=== PATIENT | male | born 1945 | race Caucasian/White ===

== ENCOUNTER 2018-11-03 07:42 | Inpatient (IN) | payer MEDICARE, BC | END 2018-11-05 13:50 | disposition home or self-care (01) | LOC: ER 07:42 → ED HOLD 11:28 → PCU 3S 16:16 | DX: J69.0 Pneumonitis due to inhalation of food and vomit (principal); J96.01 Acute respiratory failure with hypoxia; J44.1 Chronic obstructive pulmonary disease with (acute) exacerbation; N17.9 Acute kidney failure, unspecified; I27.20 Pulmonary hypertension, unspecified; J43.9 Emphysema, unspecified; R91.1 Solitary pulmonary nodule ==

== ENCOUNTER 2020-06-22 06:22 | Inpatient (IN) | payer BC, MEDICARE ==
[~2020-06-22] VITALS: Ht 177.8 cm; Wt 85.0 kg
[~2020-06-22 06:22] MED LIST: AMOX-580 PO; ASPI-1264 PO; BUPR100T13 PO; COMP1EAC88; CYCL-1 PO; FLUT1AER INH; HYDR-3972 PO; IPRA3AMP9 NEB; LOSA50TA64 PO; METR500T PO; MONT10TA21 PO; PRED20TA PO; ZOLP5TAB8 PO
[2020-06-22] MEDS ORDERED: dexamethasone sod phosphate 10mg/ml inj IV STA (06:58)
[2020-06-22] MEDS ORDERED: ipratropium/albuterol 3ml nebule NEB ONE (07:00)
[2020-06-22 07:01] LABS: BASOPHILS % (AUTO) 0.5 % (0-1); EOSINOPHILS # (AUTO) 0.1 X10'3 (0-0.9); EOSINOPHILS % (AUTO) 0.8 % (0-6); HEMATOCRIT 46.1 % (42.0-52.0); HEMOGLOBIN 15.9 g/dl (14.0-17.9); LYMPHOCYTES # (AUTO) 0.8 X10'3 (1.1-4.8); LYMPHOCYTES % (AUTO) 13.1 % (21-51); MEAN CORPUSCULAR HEMOGLOBIN 30.9 PG (27.0-31.0); MEAN CORPUSCULAR HGB CONC 34.4 g/dL (33.0-36.5); MEAN CORPUSCULAR VOLUME 89.7 FL (78-98); MEAN PLATELET VOLUME 7.1 FL (7.4-10.4); MONOCYTES # (AUTO) 0.4 X10'3 (0-0.9); MONOCYTES % (AUTO) 6.5 % (2-12); NEUTROPHILS # (AUTO) 5.1 X10'3 (1.8-7.7); NEUTROPHILS % (AUTO) 79.1 % (42-75); PLATELET COUNT 220 X10'3 (140-440); RED BLOOD COUNT 5.14 X10'6 (4.70-6.10); RED CELL DISTRIBUTION WIDTH 13.6 % (11.5-14.5); WHITE BLOOD COUNT 6.4 X10'3 (4.5-11.0)
[2020-06-22 07:16] LABS: ALANINE AMINOTRANSFERASE 31 U/L (12-78); ALBUMIN 3.8 G/DL (3.4-5.0); ALBUMIN/GLOBULIN RATIO 1.2 (1.1-1.5); ALKALINE PHOSPHATASE 54 IU/L (46-116); ANION GAP 12 (8-16); ASPARTATE AMINO TRANSFERASE 25 U/L (10-37); BLOOD UREA NITROGEN 27 MG/DL (7-18); CALCIUM 8.3 MG/DL (8.5-10.1); CHLORIDE 104 MMOL/L (99-107); CREATININE 1.23 MG/DL (0.60-1.10); GLUCOSE 99 MG/DL (70-104); POTASSIUM 4.2 MMOL/L (3.5-5.1); SODIUM 137 MMOL/L (135-145); TOTAL CARBON DIOXIDE 21.1 MMOL/L (24-32); TOTAL PROTEIN 6.9 G/DL (6.4-8.2); eGFR 57 ML/MIN
[2020-06-22] MEDS ORDERED: iohexol 350MG/ML 100ml bottle IV ONE (08:15)
[2020-06-22] MEDS ORDERED: normal saline 1000ml 1,000 ML IV SCH (09:58)
[2020-06-22] MEDS ORDERED: ondansetron/PF 4mg/2ml inj IV PRN (10:00)
[2020-06-22] MEDS ORDERED: acetaminophen 325mg tablet PO PRN ×2 (10:00)
[2020-06-22] MEDS ORDERED: magnesium 4gm in 100ml NS 100 ML IV PRN (10:00)
[2020-06-22] MEDS ORDERED: potassium CL 10mEq/100ml bag 100 ML IV PRN ×2 (10:00)
[2020-06-22] MEDS ORDERED: potassium Cl 20 mEq SR tablet PO PRN ×2 (10:00)
[2020-06-22] MEDS ORDERED: mag hydrox/Alum hydrox/simeth 30ml oral suspension PO PRN (10:00)
[2020-06-22] MEDS ORDERED: ipratropium/albuterol 3ml nebule NEB PRN (10:00)
[2020-06-22] MEDS ORDERED: magnesium hydroxide 30ml (MOM) UD suspension PO PRN (10:00)
[2020-06-22] MEDS ORDERED: magnesium Cl slow-release 64mg tablet PO PRN (10:00)
[2020-06-22] MEDS ORDERED: metoclopramide 5 mg/ml inj IV PRN (10:00)
[2020-06-22] MEDS ORDERED: HYDROcodone/acetaminophen 10/325mg tab PO PRN ×2 (10:00→18:50)
[2020-06-22] MEDS ORDERED: HYDROcodone/acetaminophen 5mg/325mg tablet PO PRN (10:00)
[2020-06-22] MEDS ORDERED: magnesium 2GM in 50ml NS 50 ML IV PRN (10:00)
[2020-06-22] MEDS: ipratropium/albuterol 3ml nebule NEB SCH ×2 (10:53→20:16)
[2020-06-22] MEDS ORDERED: ALBU18HF2 IH (12:44)
[2020-06-22] MEDS ORDERED: HYDR-4353 PO (12:44)
[2020-06-22] MEDS ORDERED: PRED20TA PO (12:47)
[2020-06-22] MEDS ORDERED: TIOT18CA3 ID (12:48)
[2020-06-22] MEDS ORDERED: AMLO2.5T5 PO (12:53)
[2020-06-22] MEDS ORDERED: VENL100T4 PO ×2 (12:53→12:57)
[2020-06-22] MEDS ORDERED: BUPR300T53 PO (12:53)
[2020-06-22] MEDS ORDERED: UMEC62.5 IH (12:59)
[2020-06-22] MEDS ORDERED: IBUP-1985 PO (13:08)
[2020-06-22] MEDS ORDERED: IPRA3AMP31 IH (13:16)
--- NOTE | 2020-06-22 15:35 | NUR ---
Received report from MARY ALICE Deal. Awaiting patient arrival to room 3023L.
--- NOTE | 2020-06-22 15:56 | NUR ---
Received patient to room 4026B via rney accompanied by MARY ALICE Deal. Patient alert and oriented with no complaints at this time and was able to ambulate to bed with SBA. Patient one belongings bag placed in closet. Oriented patient to room and call light. Bed low and locked, call light within reach.
[2020-06-22] MEDS: methylPREDNISolone sod succ 125mg/2ml vial IV SCH ×2 (16:20→19:45)
[2020-06-22 16:24] VITALS: BP 125/69
--- NOTE | 2020-06-22 17:51 | NUR ---
Dr. Muir in at patient's bedside.
[2020-06-22 18:00] VITALS: BP 139/71
--- NOTE | 2020-06-22 18:07 | NUR ---
Problems reprioritized. Patient report given, questions answered & plan of care reviewed with MARY ALICE Crowe.
[2020-06-22] MEDS ORDERED: zolpidem 5mg tablet PO PRN (18:50)
[2020-06-22] MEDS ORDERED: albuterol 2.5 MG/3 ML nebule NEB PRN (19:00)
[2020-06-22] MEDS ORDERED: ipratropium 0.5 MG/2.5ML nebule IH PRN (19:00)
[2020-06-22] MEDS: K and/or MAG REPLACEMENT MC SCH (20:00)
[2020-06-22] MEDS ORDERED: enoxaparin 40mg/0.4ml syringe SQ SCH (20:00)
[2020-06-22] MEDS: budesonide 0.5mg/2ml UD nebule IH SCH (20:16)
[2020-06-22] MEDS ORDERED: temazepam 15mg capsule PO PRN (21:00)
[2020-06-22 22:00] VITALS: BP 144/83
[2020-06-23] MEDS: ipratropium/albuterol 3ml nebule NEB SCH ×2 (00:06→07:01)
[2020-06-23] MEDS: methylPREDNISolone sod succ 125mg/2ml vial IV SCH ×3 (01:10→08:43)
[2020-06-23 02:00] VITALS: BP 141/78
[2020-06-23 05:17] LABS: BASOPHILS % (AUTO) 0 % (0-1); EOSINOPHILS % (AUTO) 0 % (0-6); HEMATOCRIT 43.9 % (42.0-52.0); LYMPHOCYTES # (AUTO) 0.6 X10'3 (1.1-4.8); LYMPHOCYTES % (AUTO) 9.8 % (21-51); MEAN CORPUSCULAR HEMOGLOBIN 30.7 PG (27.0-31.0); MEAN CORPUSCULAR HGB CONC 34.2 g/dL (33.0-36.5); MEAN CORPUSCULAR VOLUME 89.7 FL (78-98); MEAN PLATELET VOLUME 7.3 FL (7.4-10.4); MONOCYTES # (AUTO) 0.1 X10'3 (0-0.9); MONOCYTES % (AUTO) 1.1 % (2-12); NEUTROPHILS # (AUTO) 5.1 X10'3 (1.8-7.7); NEUTROPHILS % (AUTO) 89.1 % (42-75); PLATELET COUNT 206 X10'3 (140-440); RED BLOOD COUNT 4.89 X10'6 (4.70-6.10); RED CELL DISTRIBUTION WIDTH 13.6 % (11.5-14.5); WHITE BLOOD COUNT 5.8 X10'3 (4.5-11.0)
[2020-06-23 05:39] LABS: ALANINE AMINOTRANSFERASE 29 U/L (12-78); ALBUMIN 3.5 G/DL (3.4-5.0); ALBUMIN/GLOBULIN RATIO 1.2 (1.1-1.5); ALKALINE PHOSPHATASE 48 IU/L (46-116); ANION GAP 10 (8-16); ASPARTATE AMINO TRANSFERASE 23 U/L (10-37); BILIRUBIN,TOTAL 0.5 MG/DL (0.1-1.0); BLOOD UREA NITROGEN 31 MG/DL (7-18); CALCIUM 8.6 MG/DL (8.5-10.1); CHLORIDE 103 MMOL/L (99-107); CREATININE 1.07 MG/DL (0.60-1.10); GLUCOSE 163 MG/DL (70-104); MAGNESIUM 1.7 MG/DL (1.5-2.4); POTASSIUM 4.3 MMOL/L (3.5-5.1); SODIUM 137 MMOL/L (135-145); TOTAL CARBON DIOXIDE 24.3 MMOL/L (24-32); TOTAL PROTEIN 6.5 G/DL (6.4-8.2); eGFR 67 ML/MIN
[2020-06-23 06:00] VITALS: BP 148/79
--- NOTE | 2020-06-23 06:18 | NUR ---
Problems reprioritized. Patient report given, questions answered & plan of care reviewed with MARY ALICE Plunkett.
--- NOTE | 2020-06-23 06:30 | NUR ---
Patient in room PCU 3026. I have received report from MARY ALICE Matias and had the opportunity to ask questions and assume patient care.
[2020-06-23] MEDS: budesonide 0.5mg/2ml UD nebule IH SCH (07:01)
[2020-06-23] MEDS ORDERED: amLODIPine 2.5mg tablet PO SCH (08:00)
[2020-06-23] MEDS ORDERED: montelukast 10mg tablet PO SCH (08:00)
[2020-06-23] MEDS: K and/or MAG REPLACEMENT MC SCH (08:00)
[2020-06-23] MEDS ORDERED: buPROPion SR 150mg tablet PO SCH (08:00)
[2020-06-23 08:42] VITALS: BP_SYST 148
[2020-06-23] MEDS ORDERED: PRED20TA PO (09:53)
--- NOTE | 2020-06-23 10:54 | NUR ---
Discharged. Safe for DC per Dr Muir. PIV taken out and tele returned. Took belongings. Prednisone sent to pharmacy and patient educated on med. Educted on COPD and follow-ups. Picked up by and able to ambulate out.
== END 2020-06-23 10:52 | disposition home or self-care (01) | DRG 189 ==
LOC: ER 06:22 → ED HOLD 09:58 → PCU 3S 15:43
PROVIDERS: ADMIT Family Medicine; ATTEND Family Medicine
PROC: B32T1ZZ Computerized Tomography (CT Scan) of Left Pulmonary Artery using Low Osmolar Contrast (ICD-10-PCS; principal; 2020-06-22)
PROC: B3201ZZ Computerized Tomography (CT Scan) of Thoracic Aorta using Low Osmolar Contrast (ICD-10-PCS; 2020-06-22)
PROC: B32S1ZZ Computerized Tomography (CT Scan) of Right Pulmonary Artery using Low Osmolar Contrast (ICD-10-PCS; 2020-06-22)
DX: J96.01 Acute respiratory failure with hypoxia (principal); J43.9 Emphysema, unspecified; N40.0 Benign prostatic hyperplasia without lower urinary tract symptoms; N18.9 Chronic kidney disease, unspecified; I12.9 Hypertensive chronic kidney disease with stage 1 through stage 4 chronic kidney disease, or unspecified chronic kidney disease; I49.5 Sick sinus syndrome; Z95.0 Presence of cardiac pacemaker; Z87.891 Personal history of nicotine dependence
CPT/HCPCS: 36415; 71045; 71275; 80053; 83735; 83880; 84484; 85025; 87081; 93005; 93306; 94640; 94760; 99285; G0378; J1100; J1650; J2930; J7030; J7626; Q9967

== ENCOUNTER 2021-12-15 15:17 | Inpatient (IN) | payer MEDICARE, BC ==
[~2021-12-15] VITALS: Ht 177.8 cm; Wt 86.4 kg
[~2021-12-15 15:17] MED LIST changes: +ALBU18HF2 IH; +AMLO2.5T5 PO; -AMOX-580 PO; -ASPI-1264 PO; -BUPR100T13 PO; +BUPR300T53 PO; -COMP1EAC88; -HYDR-3972 PO; +HYDR-4353 PO; +IBUP-1985 PO; +IPRA3AMP31 IH; -IPRA3AMP9 NEB; -LOSA50TA64 PO; -METR500T PO; -PRED20TA PO; +TIOT18CA3 ID; +UMEC62.5 IH
[2021-12-15 15:57] LABS: ALANINE AMINOTRANSFERASE 29 U/L (12-78); ALBUMIN 3.9 G/DL (3.4-5.0); ALBUMIN/GLOBULIN RATIO 1.1 (1.1-1.5); ALKALINE PHOSPHATASE 55 IU/L (46-116); ANION GAP 14 (8-16); ASPARTATE AMINO TRANSFERASE 36 U/L (10-37); BILIRUBIN,TOTAL 0.7 MG/DL (0.1-1.0); BLOOD UREA NITROGEN 25 MG/DL (7-18); BUN/CREATININE RATIO 18.8 (5.4-32.0); CALCIUM 8.8 MG/DL (8.5-10.1); CHLORIDE 105 MMOL/L (99-107); CREATININE 1.33 MG/DL (0.60-1.10); GLUCOSE 111 MG/DL (70-104); SODIUM 142 MMOL/L (135-145); TOTAL CARBON DIOXIDE 23.2 MMOL/L (24-32); TOTAL PROTEIN 7.3 G/DL (6.4-8.2); eGFR 52 ML/MIN
[2021-12-15 15:59] LABS: BASOPHILS % (AUTO) 0.4 % (0-1); EOSINOPHILS # (AUTO) 0.1 X10'3 (0-0.9); HEMATOCRIT 41.7 % (42.0-52.0); HEMOGLOBIN 14.6 g/dl (14.0-17.9); LYMPHOCYTES # (AUTO) 0.9 X10'3 (1.1-4.8); LYMPHOCYTES % (AUTO) 16.6 % (21-51); MEAN CORPUSCULAR HEMOGLOBIN 30.9 PG (27.0-31.0); MEAN CORPUSCULAR HGB CONC 34.9 g/dL (33.0-36.5); MEAN CORPUSCULAR VOLUME 88.7 FL (78-98); MEAN PLATELET VOLUME 7.2 FL (7.4-10.4); MONOCYTES # (AUTO) 0.5 X10'3 (0-0.9); MONOCYTES % (AUTO) 8.6 % (2-12); NEUTROPHILS % (AUTO) 73.4 % (42-75); PLATELET COUNT 216 X10'3 (140-440); RED BLOOD COUNT 4.71 X10'6 (4.70-6.10); RED CELL DISTRIBUTION WIDTH 13.7 % (11.5-14.5); WHITE BLOOD COUNT 5.5 X10'3 (4.5-11.0)
[2021-12-15] MEDS ORDERED: normal saline 1000ml 1,000 ML IV ONE (16:25)
--- NOTE | 2021-12-15 16:56 | NUR ---
to/from ct without incident.
[2021-12-15] MEDS ORDERED: AMLO2.5T2 PO (18:00)
[2021-12-15] MEDS ORDERED: VENL25TA48 PO ×2 (18:01→18:05)
[2021-12-15] MEDS ORDERED: APIX5TAB3 PO (18:02)
--- NOTE | 2021-12-15 18:35 | NUR ---
bedside report to irwin guzman
[2021-12-15] MEDS: apixaban 5mg tablet PO SCH (20:04)
[2021-12-15 22:17] LABS: APTT 30 SECONDS (22-32)
[2021-12-15] MEDS ORDERED: potassium Cl 20 mEq SR tablet PO PRN ×2 (22:45)
[2021-12-15] MEDS ORDERED: ondansetron/PF 4mg/2ml inj IV PRN (22:45)
[2021-12-15] MEDS ORDERED: acetaminophen 325mg tablet PO PRN (22:45)
[2021-12-15] MEDS ORDERED: mag hydrox/Alum hydrox/simeth 30ml oral suspension PO PRN (22:45)
[2021-12-15] MEDS ORDERED: magnesium 4gm in 100ml NS 100 ML IV PRN (22:45)
[2021-12-15] MEDS ORDERED: magnesium Cl slow-release 64mg tablet PO PRN (22:45)
[2021-12-15] MEDS ORDERED: PERFLUTREN PROTEIN-A MICROSPHR (Optison) 0.22 MG/ML 3ML VIAL IV PRN (22:45)
[2021-12-15] MEDS ORDERED: magnesium hydroxide 30ml (MOM) UD suspension PO PRN (22:45)
[2021-12-15] MEDS ORDERED: potassium CL 10mEq/100ml bag 100 ML IV PRN (22:45)
[2021-12-15] MEDS ORDERED: magnesium 2GM in 50ml NS 50 ML IV PRN (22:45)
[2021-12-15] MEDS ORDERED: HYDROcodone/acetaminophen 10/325mg tab PO PRN (22:50)
[2021-12-15] MEDS ORDERED: zolpidem 5mg tablet PO PRN (22:50)
[2021-12-15] MEDS ORDERED: ipratropium/albuterol 3ml nebule IH PRN (22:50)
[2021-12-15] MEDS ORDERED: ALBUTEROL INHALER 1 PUFF/90 MCG INHALER IH PRN (22:50)
[2021-12-15] MEDS ORDERED: VENL75CA61 PO (22:51)
[2021-12-15] MEDS ORDERED: IBUP-1985 PO (23:21)
[2021-12-15] MEDS ORDERED: cyclobenzaprine 10mg tablet PO PRN (23:35)
[2021-12-15 23:53] LABS: MAGNESIUM 1.9 MG/DL (1.5-2.4); POTASSIUM 4.8 MMOL/L (3.5-5.1)
[2021-12-16] VITALS (8 sets, daily range): BP systolic 101–150; BP diastolic 68–89
[2021-12-16] MEDS: ipratropium/albuterol 3ml nebule NEB SCH ×2 (02:42→07:14)
--- NOTE | 2021-12-16 06:30 | NUR ---
Patient in room PCU 3015. I have received report from Christen WHEAT and had the opportunity to ask questions and assume patient care.
[2021-12-16 06:33] LABS: ALANINE AMINOTRANSFERASE 23 U/L (12-78); ALBUMIN 3.5 G/DL (3.4-5.0); ALBUMIN/GLOBULIN RATIO 1.3 (1.1-1.5); ALKALINE PHOSPHATASE 47 IU/L (46-116); ANION GAP 9 (8-16); ASPARTATE AMINO TRANSFERASE 25 U/L (10-37); BILIRUBIN,TOTAL 0.7 MG/DL (0.1-1.0); BLOOD UREA NITROGEN 25 MG/DL (7-18); BUN/CREATININE RATIO 22.9 (5.4-32.0); CALCIUM 8.6 MG/DL (8.5-10.1); CHLORIDE 109 MMOL/L (99-107); CREATININE 1.09 MG/DL (0.60-1.10); GLUCOSE 94 MG/DL (70-104); POTASSIUM 4.6 MMOL/L (3.5-5.1); SODIUM 144 MMOL/L (135-145); TOTAL CARBON DIOXIDE 26.5 MMOL/L (24-32); TOTAL PROTEIN 6.3 G/DL (6.4-8.2); eGFR 66 ML/MIN
--- NOTE | 2021-12-16 06:34 | NUR ---
Patient in room PCU 3015. I have received report from MARY ALICE Velásquez and had the opportunity to ask questions and assume patient care.
[2021-12-16 06:36] LABS: BASOPHILS % (AUTO) 0.3 % (0-1); EOSINOPHILS # (AUTO) 0.1 X10'3 (0-0.9); EOSINOPHILS % (AUTO) 1.4 % (0-6); HEMATOCRIT 41.4 % (42.0-52.0); HEMOGLOBIN 14.2 g/dl (14.0-17.9); LYMPHOCYTES # (AUTO) 1.2 X10'3 (1.1-4.8); LYMPHOCYTES % (AUTO) 20.6 % (21-51); MEAN CORPUSCULAR HEMOGLOBIN 30.7 PG (27.0-31.0); MEAN CORPUSCULAR HGB CONC 34.4 g/dL (33.0-36.5); MEAN CORPUSCULAR VOLUME 89.3 FL (78-98); MONOCYTES # (AUTO) 0.5 X10'3 (0-0.9); MONOCYTES % (AUTO) 9.5 % (2-12); NEUTROPHILS # (AUTO) 3.9 X10'3 (1.8-7.7); NEUTROPHILS % (AUTO) 68.2 % (42-75); PLATELET COUNT 202 X10'3 (140-440); RED BLOOD COUNT 4.64 X10'6 (4.70-6.10); RED CELL DISTRIBUTION WIDTH 13.7 % (11.5-14.5); WHITE BLOOD COUNT 5.7 X10'3 (4.5-11.0)
[2021-12-16 06:40] LABS: MAGNESIUM 1.9 MG/DL (1.5-2.4)
[2021-12-16] MEDS: apixaban 5mg tablet PO SCH (07:53)
[2021-12-16] MEDS ORDERED: K and/or MAG REPLACEMENT MC SCH (08:00)
[2021-12-16] MEDS ORDERED: docusate sod 100mg capsule PO SCH (08:00)
[2021-12-16] MEDS ORDERED: budesonide 0.5mg/2ml UD nebule IH SCH (08:00)
[2021-12-16] MEDS ORDERED: montelukast 10mg tablet PO SCH (08:00)
[2021-12-16 09:21] LABS: ETHANOL < 0.010 GM/DL (0.0-0.010)
--- NOTE | 2021-12-16 16:30 | NUR ---
Orientee documentation: I have reviewed and agree with all interventions, assessments performed and documented by Cherelle Solis RN.
[2021-12-16] MEDS ORDERED: apixaban 5mg tablet PO SCH (20:00)
== END 2021-12-16 16:30 | disposition home or self-care (01) | DRG 923 ==
LOC: ER 15:17 → ED HOLD 22:46 → PCU 3S 12-16 00:25
PROVIDERS: ADMIT Internal Medicine; ATTEND Family Medicine
PROC: 4B02XSZ Measurement of Cardiac Pacemaker, External Approach (ICD-10-PCS; principal; 2021-12-15)
DX: T67.01XA Heatstroke and sunstroke, initial encounter (principal); X58.XXXA Exposure to other specified factors, initial encounter; I10 Essential (primary) hypertension; J44.9 Chronic obstructive pulmonary disease, unspecified; Z96.653 Presence of artificial knee joint, bilateral; M17.0 Bilateral primary osteoarthritis of knee; E86.0 Dehydration; I49.5 Sick sinus syndrome; N40.0 Benign prostatic hyperplasia without lower urinary tract symptoms; F32.A Depression, unspecified; Y92.89 Other specified places as the place of occurrence of the external cause; Y93.89 Activity, other specified; Y99.8 Other external cause status; Z79.01 Long term (current) use of anticoagulants; Z79.51 Long term (current) use of inhaled steroids; Z95.0 Presence of cardiac pacemaker; Z79.899 Other long term (current) drug therapy
CPT/HCPCS: 36415; 70450; 71045; 80053; 80320; 83735; 84132; 84484; 85025; 85610; 85730; 93005; 93306; 94640; 94760; 96360; 96361; 99285; G0378; J7030

== ENCOUNTER 2024-05-03 11:52 | Emergency (ER) | payer MEDICARE, BC ==
[~2024-05-03] VITALS: Ht 177.8 cm; Wt 83.2 kg
[~2024-05-03 11:52] MED LIST changes: -AMLO2.5T5 PO; +APIX5TAB3 PO; -BUPR300T53 PO; -CYCL-1 PO; -FLUT1AER INH; +FLUT1BLS3 INH; -HYDR-4353 PO; -IBUP-1985 PO; +LOP12.5T PO; +MONT-48 PO; -MONT10TA21 PO; -TIOT18CA3 ID; +VENL75CA61 PO
[2024-05-03 12:00] VITALS: TEMP 97.7
[2024-05-03 12:17] VITALS: RESP 16
[2024-05-03 12:32] LABS: BASOPHILS % (AUTO) 0.5 % (0-1); EOSINOPHILS % (AUTO) 0.7 % (0-6); HEMATOCRIT 41.7 % (42.0-52.0); HEMOGLOBIN 13.9 g/dl (14.0-17.9); LYMPHOCYTES # (AUTO) 1.1 X10'3 (1.1-4.8); MEAN CORPUSCULAR HGB CONC 33.2 g/dL (33.0-36.5); MEAN CORPUSCULAR VOLUME 90.4 FL (78-98); MEAN PLATELET VOLUME 7.1 FL (7.4-10.4); MONOCYTES # (AUTO) 0.4 X10'3 (0-0.9); MONOCYTES % (AUTO) 6.3 % (2-12); NEUTROPHILS # (AUTO) 4.1 X10'3 (1.8-7.7); NEUTROPHILS % (AUTO) 73.5 % (42-75); PLATELET COUNT 186 X10'3 (140-440); RED BLOOD COUNT 4.62 X10'6 (4.70-6.10); WHITE BLOOD COUNT 5.5 X10'3 (4.5-11.0)
[2024-05-03 12:50] LABS: ALBUMIN 3.8 G/DL (3.4-5.0); ANION GAP 11 (8-16); BLOOD UREA NITROGEN 24 MG/DL (7-18); BUN/CREATININE RATIO 22.2 (10.0-20.0); CALCIUM 8.6 MG/DL (8.5-10.1); CHLORIDE 103 MMOL/L (99-107); CREATININE 1.08 MG/DL (0.60-1.10); GLUCOSE 87 MG/DL (70-104); POTASSIUM 3.9 MMOL/L (3.5-5.1); PRO BRAIN NATRIURETIC PEPTIDE 277 PG/ML (0-450); SODIUM 136 MMOL/L (135-145); TOTAL CARBON DIOXIDE 22.4 MMOL/L (24-32); eCRCL 57 ML/MIN; eGFR 66 ML/MIN
[2024-05-03] MEDS: normal saline 1000ml 1,000 ML IV ONE (13:15)
[2024-05-03 15:50] VITALS: BP 143/96; PULSE 71; O2SAT 95
== END 2024-05-03 15:57 | disposition home or self-care (01) ==
LOC: ER 11:53
DX: R55 Syncope and collapse (principal); E86.0 Dehydration; J45.909 Unspecified asthma, uncomplicated; I10 Essential (primary) hypertension; Z79.899 Other long term (current) drug therapy
CPT/HCPCS: 36415; 71045; 80048; 83880; 84484; 85025; 93005; 96360; 99285; J7030

== ENCOUNTER 2025-01-11 09:26 | Emergency (ER) | payer MEDICARE, BC ==
[~2025-01-11] VITALS: Ht 177.8 cm; Wt 77.3 kg
[~2025-01-11 09:26] MED LIST changes: +FLUT1BLS4 INH; +HYDR-3973 PO; +ROSU20TA98 PO
[2025-01-11 10:34] LABS: BILIRUBIN,URINE NEGATIVE (Neg); CLARITY,URINE CLOUDY (Clear); COLOR,URINE YELLOW (Yellow); GLUCOSE, URINE NEGATIVE (Neg); KETONES,URINE NEGATIVE (Neg); LEUKOCYTE ESTERASE ,URINE MODERATE (Neg); NITRITES, URINE POSITIVE (Neg); OCCULT BLOOD,URINE LARGE (Neg); PH,URINE 6.5 (4.8-8.0); PROTEIN,URINE 30 mg/dl (Neg)
[2025-01-11 10:36] LABS: BASOPHILS % (AUTO) 0.2 % (0-1); EOSINOPHILS % (AUTO) 0.2 % (0-6); HEMOGLOBIN 13.9 g/dl (14.0-17.9); LYMPHOCYTES # (AUTO) 0.9 X10'3 (1.1-4.8); LYMPHOCYTES % (AUTO) 7.9 % (21-51); MEAN CORPUSCULAR HEMOGLOBIN 28.8 PG (27.0-31.0); MEAN CORPUSCULAR VOLUME 87.3 FL (78-98); MEAN PLATELET VOLUME 6.9 FL (7.4-10.4); MONOCYTES % (AUTO) 8.5 % (2-12); NEUTROPHILS # (AUTO) 9.8 X10'3 (1.8-7.7); NEUTROPHILS % (AUTO) 83.2 % (42-75); PLATELET COUNT 176 X10'3 (140-440); RED BLOOD COUNT 4.82 X10'6 (4.70-6.10); WHITE BLOOD COUNT 11.8 X10'3 (4.5-11.0)
[2025-01-11 10:38] LABS: UA COLLECTION TYPE VOIDED
[2025-01-11 10:41] LABS: BACTERIA,URINE 3+ /HPF (Neg); WBC,URINE TNTC /HPF (0-4)
[2025-01-11 10:42] LABS: SQUAMOUS EPITHELIAL CELL,UR FEW /LPF (FEW)
[2025-01-11 10:57] LABS: ALANINE AMINOTRANSFERASE 34 U/L (12-78); ALBUMIN 3.5 G/DL (3.4-5.0); ALBUMIN/GLOBULIN RATIO 1.2 (1.1-1.5); ALKALINE PHOSPHATASE 64 IU/L (46-116); ANION GAP 5 (8-16); ASPARTATE AMINO TRANSFERASE 28 U/L (10-37); BILIRUBIN,TOTAL 1.2 MG/DL (0.1-1.0); BLOOD UREA NITROGEN 16 MG/DL (7-18); BUN/CREATININE RATIO 14.3 (10.0-20.0); CALCIUM 8.6 MG/DL (8.5-10.1); CHLORIDE 103 MMOL/L (99-107); CREATININE 1.12 MG/DL (0.60-1.10); GLUCOSE 92 MG/DL (70-104); POTASSIUM 3.9 MMOL/L (3.5-5.1); SODIUM 136 MMOL/L (135-145); TOTAL CARBON DIOXIDE 27.7 MMOL/L (24-32); TOTAL PROTEIN 6.5 G/DL (6.4-8.2); eCRCL 55 ML/MIN; eGFR 63 ML/MIN
[2025-01-11 11:00] LABS: PRO BRAIN NATRIURETIC PEPTIDE 361 PG/ML (0-450)
[2025-01-11] MEDS ORDERED: CEPH-585 PO (14:35)
[2025-01-11 15:06] VITALS: BP 138/67; PULSE 70; RESP 16; TEMP 99; O2SAT 5
== END 2025-01-11 14:57 | disposition home or self-care (01) ==
LOC: ER 09:26
DX: N39.0 Urinary tract infection, site not specified (principal); R55 Syncope and collapse; E78.5 Hyperlipidemia, unspecified; I11.0 Hypertensive heart disease with heart failure; I50.32 Chronic diastolic (congestive) heart failure; I27.20 Pulmonary hypertension, unspecified; I48.91 Unspecified atrial fibrillation; J43.9 Emphysema, unspecified; Z95.0 Presence of cardiac pacemaker
CPT/HCPCS: 36415; 71045; 80053; 81001; 83880; 84484; 85025; 87077; 87088; 87186; 93005; 99285

== ENCOUNTER 2025-02-04 07:33 | Outpatient (CLI) | payer MEDICARE, BC ==
[2025-02-04] VITALS (21 sets, daily range): BP systolic 131–158; BP diastolic 78–99; PULSE 68–79
== END 2025-02-04 23:59 | disposition home or self-care (01) ==
LOC: CARD DIAG 07:33
PROVIDERS: ATTEND Internal Medicine Interventional Cardiology
DX: R55 Syncope and collapse (principal)
CPT/HCPCS: 93660

== ENCOUNTER 2025-06-23 22:18 | Inpatient (IN) | payer MEDICARE, BC ==
[~2025-06-23] VITALS: Ht 177.8 cm; Wt 112.0 kg
[2025-06-23 22:41] LABS: MEAN PLATELET VOLUME 6.9 FL (7.4-10.4); RED CELL DISTRIBUTION WIDTH 14.8 % (11.5-14.5)
[2025-06-23] MEDS: normal saline 1000ml 1,000 ML IV ONE (22:42)
[2025-06-23 22:55] LABS: CREATININE 0.98 MG/DL (0.60-1.10); TOTAL CARBON DIOXIDE 24.7 MMOL/L (24-32); eCRCL 62 ML/MIN; eGFR 74 ML/MIN
[2025-06-23] MEDS: acetaminophen 1,000mg/100ml IV 100 ML IV STA (23:52)
[2025-06-24] VITALS (10 sets, daily range): BP systolic 102–131; BP diastolic 56–71; PULSE 67–89; RESP 12–18; TEMP 98.3–99.7; O2SAT 87–94
[2025-06-24] LABS: LEUKOCYTE ESTERASE ,URINE NEGATIVE (Neg); NITRITES, URINE NEGATIVE (Neg); OCCULT BLOOD,URINE NEGATIVE (Neg)
[2025-06-24 00:05] LABS: UA COLLECTION TYPE VOIDED
--- NOTE | 2025-06-24 00:44 | Physician Documentation ---
History of Present Illness ~ Chief Complaint: Abdominal Pain Stated Complaint: ABDOMINAL PAIN Time Seen by MD: 00:43 Primary Medical Doctor: dr simon, casino slot supervisor is dr coyne Mode of Arrival: EMS, Stretcher [facility] Patient presents to the emergency room with one day history of abdominal pain. No prior instances. No fevers. Bowel movements reported to be regular no dysuria mild nausea. Positive fevers Medication Reconciliation Allergies: Coded Allergies: No Known Allergies (Unverified , 06/23/25) Scheduled Apixaban (Eliquis), 5 MG PO BID, (Reported) Diltiazem HCl (Diltiazem 24Hr ER), 1 CAP PO DAILY, (Reported) Fluticasone/Umeclidin/Vilanter (Trelegy Ellipta 100-62.5-25), 1 PUFFS INH DAILY, (Reported) Fluticasone/Vilanterol (Breo Ellipta 200-25 Mcg INH), 1 PUFF INH DAILY, (Reported) Metoprolol Tartrate (Lopressor tablet), 12.5 MG PO BID Montelukast Sodium (Singulair), 1 TAB PO DAILY, (Reported) Rosuvastatin Calcium (Rosuvastatin Calcium), 1 TAB PO HS, (Reported) Umeclidinium [place] (Incruse Ellipta), 1 PUFF IH DAILY, (Reported) Venlafaxine Hcl (Venlafaxine Hcl Er), 1 CAP PO DAILY, (Reported) Scheduled PRN Albuterol Sulfate (Ventolin Hfa), 2 PUFFS IH Q4H PRN for SOB or wheezing, (Reported) Hydrocodone Bit/Acetaminophen (Hydrocodone-Apap 10-325 Tablet), 1 TAB PO TID PRN PRN for pain, (Reported) Ipratropium/Albuterol Sulfate (Duoneb 2.5-0.5 Mg/3 Ml Soln), 3 ML IH Q4H PRN for SOB or wheezing, (Reported) Zolpidem Tartrate* (Ambien*), 1 TAB PO HS PRN for INSOMNIA, (Reported) Past Medical History Past Medical History: *CARDIOVASCULAR*, Hypertension, Asthma, Emphysema, Pulmonary HTN Past Surgical History: pacemaker Alcohol Use: Occasionally Drug Use: none Lives with: Spouse Lives In: Home Review of Systems ROS All review of systems negative except as per HPI Physical Exam Vital Signs: Temperature: 101.7, Source: Oral, Heart Rate: 84, Respiratory Rate: 16, BP: 127/71, Pulse Oximetry: 95, Weight: 112.000 Oxygen Flow Rate: 0 Physical Exam General: Patient is awake, alert, oriented x4 in no acute distress Head: Normocephalic and atraumatic. Eyes: Conjunctival normal. EOMI. PERRL. ENT: Mucous membranes moist. Neck: Supple, trachea is midline. Chest: Clear to auscultation bilaterally without rales, rhonchi, or wheezes. There is no accessory muscle use or retractions. Cardiac: RRR without murmurs, gallops, or rubs. Abd: Soft, nondistended, significant tenderness to palpation to lower abdomen Progress Results/Orders Results/Orders Orders - LAWRENCE GRECO MD Covid19 Binax Poc Result Entry (06/24/25 00:43) Ct Abdomen Pelvis (06/24/25 01:25) Normal Saline 1000ml (0.9% Sodium Chlori (06/24/25 02:30) Electrocardiogram (06/24/25 02:36) Culture Blood (06/24/25 02:34) Chest,Single View (06/24/25 02:50) Page Hospitalist (06/24/25 02:44) Fill Out Med Reconciliation (06/24/25 02:44) Completed Orders - LAWRENCE GRECO MD Urinalysis, Cult If Indicated (06/23/25 22:25) Cbc/Diff (06/23/25 22:25) BMP (06/23/25 22:25) Lipase (06/23/25 22:25) CMP (06/23/25 22:25) Normal Saline 1000ml (0.9% Sodium Chlori (06/23/25 22:40) LA (06/23/25 23:39) Acetaminophen 1,000mg/100ml Iv (Ofirmev (06/24/25 02:00) Acetaminophen 1,000mg/100ml Iv (Ofirmev (06/23/25 23:47) Procalcitonin (06/24/25 00:43) Ct Abdomen Pelvis (06/24/25 01:25) Ondansetron Inj. (Zofran 4mg/2ml Vial) (06/24/25 00:50) Fentanyl/Pf (Fentanyl 0.05 Mg/Ml Syringe (06/24/25 00:50) Iohexol 300mg/Ml 100ml Inj. (Omnipaque-3 (06/24/25 01:15) Piperacillin/Tazo 3.375gm/50ml (Zosyn 3. (06/24/25 02:30) Electrocardiogram (06/24/25 ) Chest,Single View (06/24/25 02:50) Fentanyl/Pf (Fentanyl 0.05 Mg/Ml Syringe (06/24/25 02:45) Medications Received in ER Medications (Trade) Dose Ordered Sig/Ricky Route PRN Reason Start Time Stop Time Status Last Admin Dose Admin Sodium Chloride 1,000 ml @ 1,000 mls/hr ONCE ONCE IV 06/23/25 22:40 06/23/25 23:39 DC 06/23/25 22:42 1,000 MLS/HR Acetaminophen 100 ml @ 400 mls/hr STAT STAT IV 06/23/25 23:47 06/24/25 00:01 DC 06/23/25 23:52 400 MLS/HR (Zofran 4mg/2ml vial) 4 mg ONCE ONCE IV 06/24/25 00:50 06/24/25 00:51 DC 06/24/25 01:04 4 MG (fentaNYL 0.05 MG/ML syringe) 50 mcg ONCE ONCE IV 06/24/25 00:50 06/24/25 00:51 DC 06/24/25 01:05 50 MCG Sodium Chloride 1,000 ml @ 1,000 mls/hr ONCE ONCE IV 06/24/25 02:30 06/24/25 03:29 06/24/25 02:33 1,000 MLS/HR Piperacillin/ Tazobactam/ Dextrose 50 ml @ 100 mls/hr ONCE ONCE IV 06/24/25 02:30 06/24/25 02:59 DC 06/24/25 02:55 100 MLS/HR (fentaNYL 0.05 MG/ML syringe) 50 mcg ONCE ONCE IV 06/24/25 02:45 06/24/25 02:51 DC 06/24/25 02:55 50 MCG Vital Signs 06/23/25 06/23/25 06/23/25 06/23/25 22:21 22:26 22:26 23:37 Temp 101.7 Pulse 75 93 84 Resp 16 16 16 16 B/P (MAP) 146/88 126/72 (90) 127/71 (89) Pulse Ox 95 94 95 O2 Flow Rate 0 0 0 06/24/25 06/24/25 06/24/25 06/24/25 00:59 01:05 02:23 02:26 Temp 100.0 Pulse 79 76 Resp 14 16 13 16 B/P (MAP) 105/72 (83) 104/46 (65) Pulse Ox 94 92 O2 Flow Rate 0 0 06/24/25 06/24/25 06/24/25 02:36 02:55 03:15 Pulse 72 Resp 16 16 B/P (MAP) 92/41 (58) Pulse Ox 96 97 O2 Delivery Nasal Cannula* O2 Flow Rate 2 2.0 FiO2 28 Laboratory Tests Test 06/23/25 22:34 06/23/25 23:37 06/23/25 23:53 06/24/25 01:56 White Blood Count 10.3 Red Blood Count 4.66 L Hemoglobin 13.8 L Hematocrit 41.0 L Mean Corpuscular Volume 88.0 Mean Corpuscular Hemoglobin 29.7 Mean Corpuscular Hemoglobin Concent 33.7 Red Cell Distribution Width 14.8 H Platelet Count 171 Mean Platelet Volume 6.9 L Neutrophils (%) (Auto) 85.3 H Lymphocytes (%) (Auto) 7.0 L Monocytes (%) (Auto) 7.2 Eosinophils (%) (Auto) 0.2 Basophils (%) (Auto) 0.3 Neutrophils # (Auto) 8.8 H Lymphocytes # (Auto) 0.7 L Monocytes # (Auto) 0.7 Eosinophils # (Auto) 0.0 Basophils # (Auto) 0.0 CBC Comment Sodium Level 134 L Potassium Level 3.8 Chloride Level 103 Carbon Dioxide Level 24.7 Anion Gap 6 L Blood Urea Nitrogen 21 H Creatinine 0.98 Estimated GFR/1.73 m2 74 BUN/Creatinine Ratio 21.4 H Glucose Level 117 H Calcium Level 8.4 L Total Bilirubin 1.3 H Aspartate Amino Transf (AST/SGOT) 22 Alanine Aminotransferase (ALT/SGPT) 17 Alkaline Phosphatase 57 Total Protein 6.3 L Albumin 3.4 Globulin 2.9 Albumin/Globulin Ratio 1.2 Lipase 17 Procalcitonin < 0.05 Chemistry Comments Lactic Acid Level 0.5 Urine Specimen Description Voided Urine Color Yellow Urine Clarity Clear Urine pH 7.0 Urine Specific [place] 1.010 Urine Protein Negative Urine Glucose (UA) Negative Urine Ketones Negative Urine Occult Blood Negative Urine Nitrite Negative Urine Bilirubin Negative Urine Urobilinogen 1.0 Urine Leukocyte Esterase Negative Urine Culture Indicated Not ind Volume Urine Centrifuged 10 ml Urine Comment SARS-CoV-2 Antigen (Rapid) Negative EKG/XRAY/CT/US/VASC/MRI EKG : Additional Comment EKG interpreted by myself shows time of 0236, rate 73, sinus rhythm, left axis deviation, right bundle-branch block, no ST changes Chest X-Ray : Additional Comments Exam: CHEST,SINGLE VIEW CHEST RADIOGRAPH Indication: change in condition Technique: 1 view Comparison: DI CHEST,SINGLE VIEW on DOS: 01/11/25, DI CHEST,SINGLE VIEW on DOS: 05/20/24, DI CHEST,SINGLE VIEW on DOS: 05/03/24, CHEST,SINGLE VIEW on DOS: 02/06/23, CHEST,SINGLE VIEW on DOS: 12/15/21 FINDINGS: Lines and Tubes: Unchanged left implanted cardiac device positioning. Lungs/Pleura: No focal consolidation, pleural effusion or pneumothorax. Emphysematous appearing lungs. Similar scarring/atelectasis of the lung bases. Cardiomediastinum: Unremarkable. Other: No acute osseous abnormality. IMPRESSION: 1. No acute cardiopulmonary abnormality or significant change from prior exam. Medical Decision Making Findings Patient presents to the emergency room with abdominal pain as per HPI. Differentials include but are not limited to appendicitis cholecystitis diverticulitis pancreatitis gastritis small-bowel obstruction kidney stone therefore emergent labs and imaging indicated. Workup consistent with diverticulitis with microperforation. IV antibiotics initiated. Patient's blood pressures hyperdynamic and that has blood pressure is sensitive to opioids however IV resuscitation improved his blood pressure with current blood pressure 118/58. I feel he is stable for the floor. Departure Admitted to Inpatient Unit: yes, to hospitalist Impression: Primary Impression: Diverticulitis of intestine with perforation without abscess Condition: Guarded Referrals: NO PRIMARY CARE PROVIDER (PCP) Signature Scribe Signature: No scribe Attestation: The note accurately reflects work and decisions made by me.Lawrence Greco MD 06/24/25 03:25 LAWRENCE GRECO MD Jun 24, 2025 00:44
[2025-06-24] MEDS: ondansetron/PF 4mg/2ml inj IV ONE (01:04)
[2025-06-24] MEDS: fentaNYL/PF 50MCG/1 ML 2ML syringe IV ONE ×2 (01:05→02:55)
[2025-06-24] MEDS ORDERED: iohexol 300mg/ml 100ml inj. ONE (01:15)
[2025-06-24] MEDS ORDERED: acetaminophen 1,000mg/100ml IV 100 ML IV SCH (02:00)
--- NOTE | 2025-06-24 02:07 | RADIOLOGY REPORT ---
Exam: CT CT ABDOMEN PELVIS W/ IV CONTRAST History: abd pain COMPARISON: None Technique: Multidetector spiral CT of the abdomen and pelvis was performed from lung bases to pubic symphysis. Intravenous contrast was administered during this examination. Portal venous imaging was obtained. Axial, coronal and sagittal multiplanar reformats were performed by the technologist on a separate workstation. Radiation Dose : 1. Abdomen/Pelvis: CTDIvol 19 mGy, DLP 981 mGy*cm. Findings: Lower Chest: No acute findings. Severe emphysema. Partially imaged cardiac lead. Liver: Diffuse hypo enhancement. Small calcifications. Gallbladder and Biliary Tree: Unchanged enlargement of the common bile duct. Pancreas: Mild atrophy. Spleen: Mildly enlarged with multiple calcifications. Adrenal Glands: Unremarkable Kidneys: No acute findings. Bilateral renal cysts without suspicious features. Bladder: Prominently distended with posterior diverticula. No significant wall thickening. Pelvic Organs: Prostatomegaly. Partially imaged 3 component inflatable penile prosthesis without evidence of complication. Bowel: The distal esophagus, stomach, duodenum and small bowel are unremarkable. Colonic diverticulosis with significant wall thickening, surrounding inflammatory stranding, and small amount of localized soft tissue gas. Vasculature: Mild atherosclerosis. Lymphadenopathy: No evident adenopathy. Peritoneum: [place] ascites/phlegmon in the pelvis. No evidence of free air or organized fluid collection. Abdominal Wall: Bilateral fat containing inguinal hernias. Musculoskeletal: Acute finding. Degenerative change of the spine and pelvis. IMPRESSION: 1. Acute sigmoid diverticulitis with micro perforation and prominent phlegmon. No evidence of pneumoperitoneum or organized abscess. Recommend surgical consultation. 2. Other chronic and incidental findings above. Radiation optimization: All CT scans at this facility use at least one of these dose optimization techniques: automated exposure control mA and/or kV adjustment per patient size (includes targeted exams where dose is matched to clinical indication) or iterative reconstruction.
[2025-06-24] MEDS: normal saline 1000ml 1,000 ML IV ONE (02:33)
--- NOTE | 2025-06-24 02:40 | ELECTROCARDIOGRAPH REPORT ---
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
[2025-06-24] MEDS: piperacillin/tazo 3.375gm/50ml 50 ML IV ONE (02:55)
--- NOTE | 2025-06-24 03:08 | RADIOLOGY REPORT ---
CHEST RADIOGRAPH Indication: change in condition Technique: 1 view Comparison: DI CHEST,SINGLE VIEW on DOS: 01/11/25, DI CHEST,SINGLE VIEW on DOS: 05/20/24, DI CHEST,SINGLE VIEW on DOS: 05/03/24, CHEST,SINGLE VIEW on DOS: 02/06/23, CHEST,SINGLE VIEW on DOS: 12/15/21 FINDINGS: Lines and Tubes: Unchanged left implanted cardiac device positioning. Lungs/Pleura: No focal consolidation, pleural effusion or pneumothorax. Emphysematous appearing lungs. Similar scarring/atelectasis of the lung bases. Cardiomediastinum: Unremarkable. Other: No acute osseous abnormality. IMPRESSION: 1. No acute cardiopulmonary abnormality or significant change from prior exam.
[2025-06-24] MEDS ORDERED: DILT-35 PO (03:11)
[2025-06-24] MEDS ORDERED: magnesium Cl slow-release 64mg tablet PO PRN (03:40)
[2025-06-24] MEDS ORDERED: potassium Cl 40MEQ/1/2NS 520ml 520 ML IV PRN (03:40)
[2025-06-24] MEDS ORDERED: magnesium sulf-water 2g/50mL 50 ML IV PRN (03:40)
[2025-06-24] MEDS ORDERED: magnesium sulf-water 4G/100mL 100 ML IV PRN (03:40)
[2025-06-24] MEDS ORDERED: mag hydrox/Alum hydrox/simeth 30ml oral suspension PO PRN (03:40)
[2025-06-24] MEDS ORDERED: potassium Cl 20 mEq SR tablet PO PRN ×2 (03:40)
--- NOTE | 2025-06-24 03:54 | HISTORY AND PHYSICAL-Residence ---
History & Physical Providers to CC Resident Creating Document: MILLERBRIANA BOURNE, RES ~ History of Present Illness Primary Medical Doctor: dr simon, material handler loader is dr coyne Reason for Admit\Complaint: ABD. PAIN History of Present Illness 80-year-old male with past medical history of hypertension, hyperlipidemia, asthma, COPD, paroxysmal AFib presents to the ED with chief complaints of abdominal pain. Patient reports that pain started yesterday, progressively increasing in intensity, constant, currently 7/10 in intensity, mainly present in the lower abdominal region, not radiating, no aggravating and relieving factors. Patient denies any complaints of nausea, vomiting, hematemesis, melena, burning micturition. Patient having normal bowel movements his last one being around 9:00 p.m. last night. Patient's colonoscopy was done 8 years ago. He denies having food outside, recent travel or contact with sick people. Patient is hard of hearing without his hearing aids. Allergies: Coded Allergies: No Known Allergies (Unverified , 06/23/25) Home Medications Home Medications Active Lopressor tablet (Metoprolol Tartrate) 25 Mg Tablet 12.5 Mg PO BID 30 Days 12.5 MG = 1/2 TABLET Reported Diltiazem 24Hr ER (Diltiazem HCl) 120 Mg Cap.er.24h 1 Cap PO DAILY Rosuvastatin Calcium 20 Mg Tablet 1 Tab PO HS 30 Days Trelegy Ellipta 100-62.5-25 (Fluticasone/Umeclidin/Vilanter) 100-62.5 Blst.w.dev 1 Puffs INH DAILY 30 Days Hydrocodone-Apap 10-325 Tablet (Acetaminophen/Hydrocodone Bitart) 10mg/325mg Tablet 1 Tab PO TID PRN PRN Breo Ellipta 200-25 Mcg INH (Fluticasone/Vilanterol) 1 Each Blst.w.dev 1 Puff INH DAILY Venlafaxine Hcl Er (Venlafaxine Hcl) 75 Mg Cap.sr.24h 1 Cap PO DAILY Eliquis (Apixaban) 5 Mg Tablet 5 Mg PO BID Duoneb 2.5-0.5 Mg/3 Ml Soln (Ipratropium/Albuterol Sulfate) 3 Ml Ampul.neb 3 Ml IH Q4H PRN Incruse Ellipta (Umeclidinium [place]) 62.5 Mcg Blst.w.dev 1 Puff IH DAILY Ventolin Hfa (Albuterol Sulfate) 18 Gm Hfa.aer.ad 2 Puffs IH Q4H PRN Ambien* (Zolpidem Tartrate) 5 Mg Tablet 1 Tab PO HS PRN Singulair (Montelukast Sodium) 10 Mg Tablet 1 Tab PO DAILY Past Medical History Past Medical History Hypertension Hyperlipidemia Asthma COPD Paroxysmal AFib Past Surgical History Surgical History Comment Pacemaker placement for low heart rate. Past Social History Social History Comment Patient quit smoking many years back previously used to smoke 1 pack per day. Drinks alcohol socially, once or twice a month, mostly beer. No illicit drug use. Alcohol Use: Occasionally Drug Use: None Lives with: Spouse Lives In: Home ROS ROS Constitutional: Reports: No chills, reports fever, no malaise Eyes: Reports: No redness, tearing ENT: Reports: no symptoms reported Respiratory: Reports: No cough, shortness of breath, wheezing Cardiovascular: Reports: No chest pain Gastrointestinal: Reports: Reports lower abdominal pain Genitourinary: Reports: Reports no symptoms Male Genitalia: Reports: No symptoms reported Neurological: Reports: No symptoms reported Musculoskeletal: Reports: no symptoms reported Integumentary: Reports: no symptoms reported Allergic/Immunologic: Reports: no symptoms reported Hematologic/Lymphatic: Reports: no symptoms reported Psychiatric: Reports: no symptoms reported Exam Vitals: Vital Signs Date Time Temp Pulse Resp B/P (MAP) Pulse Ox O2 Delivery O2 Flow Rate FiO2 06/24/25 03:15 72 16 92/41 (58) 97 2.0 06/24/25 02:36 Nasal Cannula* 28 06/24/25 02:23 100.0 General: General: Awake and Alert, no acute distress. HEENT: Conjunctiva pink, Mucus Membranes moist. Resp: Normal breath sounds. No wheezing Heart: Regular Rate and rhythm, normal S1 and S2 without murmur, rub or gallop. Abdomen: Soft and tender to palpate in the lower abdominal region, no rigidity or guarding present Extremities: no edema , peripheral pulses well felt INTERNATIONAL MANAGER: Conscious, oriented x4. No cranial nerve deficits. No upper or lower extremity motor or sensory deficits. Psych: Mood and affect appropriate Skin: Warm and Dry. Diagnostic Data Last Recorded Lab Results: 9/17/25 2234 9/17/25 2234 Advance Care Planning Advanced Care plannin - 30 Minutes (Full code) Additional Plan [id number] male with past medical history of hypertension ,hyperlipidemia ,asthma ,pacemaker placement has come to the ED with complaints of abdominal pain. Acute abdominal pain Secondary to sigmoid diverticulitis SIRS negative Patient recording fever- 100 Blood pressure- systolic 90-100s WBC count normal- 10.3, procal not elevated Lactic acid normal 0.5 CT abdomen- Colonic diverticulosis with significant wall thickening, surrounding inflammatory stranding, and small amount of localized soft tissue gas.Acute sigmoid diverticulitis with micro perforation and prominent phlegmon. No evidence of pneumoperitoneum or organized abscess. Patient given 2 L of bolus normal saline, continuing on NS 100 mL/hour. Patient given Zosyn once in the ED, continuing Patient put on NPO. Surgery consulted. Awaiting recommendations. Follow-up Mild hyponatremia Na- 134 Follow-up with labs Hyperlipidemia Continue home medication rosuvastatin 20 mg Hypertension Continue metoprolol. Hold for SBP less than 100 Hold for heart rate less than 60. Paroxysmal AFib Under rate control held Eliquis for now in view of surgery. Continue diltiazem. COPD Not in acute exacerbation Continue DuoNebs and albuterol as needed. Code Status: full code Line/tube: PIV DVT prophylaxis: None Nutrition: NPO PT: Yes Brianaalma Lee PGY-1 Fusaro Addendum #1 Neuro: - Monitor for delirium #2 CV: The patient has a history of hypertension and paroxysmal atrial fibrillation. CHADS-2 Score is 2. - If hemodynamically stable, continue home blood pressure medications which include diltiazem and metoprolol but will need to change to IV regimen CHADS-2 Score is 2. - Rate control goal < 110 bpm #3 Pulm: The patient has a history of asthma and COPD. - Initiate Duoneb treatments #4 GI: The patient presents with diverticulitis with perforated diverticulum and phlegmon. - Initiate treatment with Ceftriaxone and Metronidazole for presumed diverticulitis. - NPO status initially surgical consultation #5 Renal: - Monitor for acute kidney injury. - Replete electrolytes as needed. #6 ID: Diverticulitis perforation will need ceftriaxone flagyl and surgical consult #7 Endo: - Maintain fingerstick glucose levels between 150-180 mg/dL. Patient has a history of hyperlipidemia, continue Lipitor when ok for PO #8 Heme/Onc: - Monitor for bleeding risks and thromboembolic events. - Maintain hemoglobin > 7 and platelets > 10,000. #9 PPx: - Initiate chemical deep vein thrombosis prophylaxis unless contraindicated. I saw this patient and completed a full visual exam via audio-visual HIPAA compliant technology. Date of Service: Jun 24, 2025 Billing Provider: ASHLEY VASQUEZ MD, PREETHI, RES Jun 24, 2025 03:54 ASHLEY VASQUEZ MD Jun 24, 2025 06:46
[2025-06-24] MEDS ORDERED: non-formulary drug (Albuterol Sulfate (Ventolin Hfa) 2 PUFFS) IH PRN (04:20)
[2025-06-24] MEDS: normal saline 1000ml 1,000 ML IV SCH (04:35)
[2025-06-24 07:46] LABS: APTT 34 SECONDS (22-32); INR 1.2 INR
[2025-06-24] MEDS: K and/or MAG REPLACEMENT MC SCH (08:00)
[2025-06-24] MEDS: metoprolol tartrate 12.5mg (1/2 tablet) PO SCH (08:00)
[2025-06-24] MEDS ORDERED: non-formulary drug (Fluticasone/Vilanterol (Breo Ellipta 200-25 Mcg INH) 1 PUFF) INH SCH (08:00)
[2025-06-24] MEDS ORDERED: non-formulary drug (Fluticasone/Umeclidin/Vilanter (Trelegy Ellipta 100-62.5-25) 1 PUFFS) INH SCH (08:00)
[2025-06-24] MEDS: piperacillin/tazo 3.375gm/50ml 50 ML IV SCH (08:06)
[2025-06-24] MEDS: docusate sod 100mg capsule PO SCH (08:06)
[2025-06-24] MEDS: venlafaxine XR 75mg capsule (Q24H) PO SCH (08:07)
[2025-06-24] MEDS: diltiazem CD 120mg capsule (once-daily) PO SCH (08:07)
[2025-06-24] MEDS: ipratropium 0.5 MG/2.5ML nebule NEB SCH (08:08)
[2025-06-24] MEDS: HYDROcodone/acetaminophen 10/325mg tab PO PRN (08:08)
[2025-06-24] MEDS: ondansetron/PF 4mg/2ml inj IV PRN (08:16)
--- NOTE | 2025-06-24 08:39 | ELECTROCARDIOGRAPH REPORT ---
[facility] Test Date: 2025-06-24 Test Time: 08:37:04 Pat Name: YASH ANN Department: ORTHO 4S Room: ORTHO [facility] [place][note 2] A Gender: M County Engineer: ERICA : 1945 Requested By: ESSENCE LUA Order Number: [id number] Reading MD: Dr. Greg Ramirez Measurements Intervals [place] Rate: 75 P: 0 [place]: 164 QRS: -92 QRSD: 150 T: 55 QT: 408 QTc: 456 Interpretive Statements Sinus rhythm RBBB and LAFB Electronically Signed On 06-24-2025 9:51:[address] Greg Ramirez Please click the below link to view image of tracing.
[2025-06-24] MEDS ORDERED: morphine 4 MG/ML inj SYRINge IV PRN (11:14)
[2025-06-24] MEDS: morphine 4 MG/ML inj SYRINge IV PRN (11:23)
[2025-06-24] MEDS ORDERED: HYDROcodone/acetaminophen 10/325mg tab PO PRN (16:15)
--- NOTE | 2025-06-24 18:39 | PROGRESS NOTE ---
Daily Progress Note Providers to CC ~ Antibiotic Timeout Antibiotic Ordered?: Yes Subjective Patient was seen in his room he was still having pain over left lower quadrant but better than yesterday. As per patient he lives with his and able to ambulate Objective Vital Signs Date Time Temp Pulse Resp B/P (MAP) Pulse Ox O2 Delivery O2 Flow Rate FiO2 06/24/25 13:56 14 06/24/25 10:00 98.3 74 102/61 (75) 92 Room Air 06/24/25 08:19 0.0 06/24/25 08:09 21 Result Diagram: 06/23/254 06/24/25 0610 General-patient not in any acute distress, alert awake , ill-appearing, age- appropriate HEENT-atraumatic normocephalic, neck supple without elevated JVD, no thyromegaly or carotid bruit. No lymphadenopathy bilaterally. Eyes-no icterus or pallor seen in eyes Chest-clear to auscultation bilaterally, breathing nonlabored no tachypnea, no wheezing, no crepitation, no crackles. Heart-S1-S2 normal, regular heart rate no murmur Abdomen bowel sounds positive on auscultation, soft nondistended , signs of tenderness present on palpation over left lower quadrant, no guarding, no rigidity Skin no active skin rash Neurology-grossly intact, nonfocal alert awake oriented Extremity- no pedal edema able to move all 4 extremities Psychiatry - patient is not confused or agitated cooperated during physical examination Coagulation Studies Laboratory Tests Test 06/24/25 06:10 Prothrombin Time 12.1 SECONDS (9.0-12.0) H INR International Normalized Ratio 1.2 INR Activated Partial Thromboplast Time 34 SECONDS (22-32) H Coagulation Comments Problem\Assessment\Plan [id number]-old male with past medical history of hypertension ,hyperlipidemia ,asthma ,pacemaker placement has come to the ED with complaints of abdominal pain. Acute abdominal pain Secondary to sigmoid diverticulitis SIRS negative Patient recording fever- 100 Blood pressure- systolic 90-100s WBC count normal- 10.3, procal not elevated Lactic acid normal 0.5 CT abdomen- Colonic diverticulosis with significant wall thickening, surrounding inflammatory stranding, and small amount of localized soft tissue gas.Acute sigmoid diverticulitis with micro perforation and prominent phlegmon. No evidence of pneumoperitoneum or organized abscess. Patient given 2 L of bolus normal saline, continuing on NS 100 mL/hour. Patient given Zosyn once in the ED, continuing Patient put on NPO. Surgery consulted. Awaiting recommendations. Follow-up Mild hyponatremia Na- 134 Follow-up with labs Hyperlipidemia Continue home medication rosuvastatin 20 mg Hypertension Continue metoprolol. Hold for SBP less than 100 Hold for heart rate less than 60. Paroxysmal AFib Under rate control held Eliquis for now in view of surgery. Continue diltiazem. COPD Not in acute exacerbation Continue DuoNebs and albuterol as needed. Code Status: full code Line/tube: PIV DVT prophylaxis: None Nutrition: NPO PT: Yes Patient's current condition is guarded we will continue to follow patient in AM Date of Service: Jun 24, 2025 Billing Provider: MONICA BOND MD Common Visit Codes: [id number] INP/OBS CARE(HIGH) MONICA BOND MD Jun 24, 2025 18:38
[2025-06-25] VITALS (12 sets, daily range): BP systolic 90–115; BP diastolic 50–62; PULSE 67–79; RESP 14–19; TEMP 97.7–99.7; O2SAT 90–95
[2025-06-25 05:36] LABS: MEAN PLATELET VOLUME 7.3 FL (7.4-10.4); RED CELL DISTRIBUTION WIDTH 15.1 % (11.5-14.5)
[2025-06-25 05:43] LABS: CHOL/HDL RATIO 1.7 (0.00-4.99); CREATININE 1.38 MG/DL (0.60-1.10); LDL CHOLESTEROL 29 MG/DL (50-100); TOTAL CARBON DIOXIDE 26.6 MMOL/L (24-32); eCRCL 44 ML/MIN; eGFR 50 ML/MIN
[2025-06-25] MEDS: ipratropium/albuterol 3ml nebule IH PRN (07:54)
[2025-06-25] MEDS: HYDROcodone/acetaminophen 5mg/325mg tablet PO PRN (08:16)
[2025-06-25] MEDS: metroNIDAZOLE-Flagyl 500mg/NS 100 ML IV SCH (10:41)
[2025-06-25] MEDS: ciprofloxacin lact 400MG/200ML 200 ML IV SCH (10:43)
--- NOTE | 2025-06-25 18:59 | PROGRESS NOTE ---
Daily Progress Note Providers to CC ~ Antibiotic Timeout Antibiotic Ordered?: Yes Subjective Seen in presence of his family members and . Patient is still having pain over left lower belly. Able to ambulate passing gas. Case was discussed with Dr. Gill who is willing to evaluate the patient and recommended to put the patient on clear liquid diet and continue medical management and if it is not getting better then he will plan to order the CT with contrast once kidney function improves. Objective Vital Signs Date Time Temp Pulse Resp B/P (MAP) Pulse Ox O2 Delivery O2 Flow Rate FiO2 06/25/25 18:00 97.9 79 18 104/57 (73) 90 Nasal Cannula 1.5 06/25/25 15:13 28 Result Diagram: 06/25/25 0500 06/25/25 0500 General-patient not in any acute distress, alert awake , ill-appearing, age- appropriate HEENT-atraumatic normocephalic, neck supple without elevated JVD, no thyromegaly or carotid bruit. No lymphadenopathy bilaterally. Eyes-no icterus or pallor seen in eyes Chest-clear to auscultation bilaterally, breathing nonlabored no tachypnea, no wheezing, no crepitation, no crackles. Heart-S1-S2 normal, regular heart rate no murmur Abdomen bowel sounds positive on auscultation, soft nondistended , signs of tenderness present on palpation over left lower quadrant, no guarding, no rigidity Skin no active skin rash Neurology-grossly intact, nonfocal alert awake oriented Extremity- no pedal edema able to move all 4 extremities Psychiatry - patient is not confused or agitated cooperated during physical examination Coagulation Studies Laboratory Tests Test 06/24/25 06:10 Prothrombin Time 12.1 SECONDS (9.0-12.0) H INR International Normalized Ratio 1.2 INR Activated Partial Thromboplast Time 34 SECONDS (22-32) H Coagulation Comments Problem\Assessment\Plan [id number]-old male with past medical history of hypertension ,hyperlipidemia ,asthma ,pacemaker placement has come to the ED with complaints of abdominal pain. Acute abdominal pain Secondary to sigmoid diverticulitis SIRS negative Patient recording fever- 100 Blood pressure- systolic 90-100s WBC count normal- 10.3, procal not elevated Lactic acid normal 0.5 CT abdomen- Colonic diverticulosis with significant wall thickening, surrounding inflammatory stranding, and small amount of localized soft tissue gas.Acute sigmoid diverticulitis with micro perforation and prominent phlegmon. No evidence of pneumoperitoneum or organized abscess. Patient given 2 L of bolus normal saline, continuing on NS 100 mL/hour. Patient given Zosyn once in the ED, continuing Patient put on NPO. Surgery consulted. Awaiting recommendations. Follow-up Mild hyponatremia Na- 134 Follow-up with labs Hyperlipidemia Continue home medication rosuvastatin 20 mg Hypertension Continue metoprolol. Hold for SBP less than 100 Hold for heart rate less than 60. Paroxysmal AFib Under rate control held Eliquis for now in view of surgery. Continue diltiazem. COPD Not in acute exacerbation Continue DuoNebs and albuterol as needed. Code Status: full code Line/tube: PIV DVT prophylaxis: None Nutrition: NPO PT: Yes Patient's current condition is guarded we will continue to follow patient in AM Date of Service: Jun 25, 2025 Billing Provider: MONICA BOND MD Common Visit Codes: [id number] INP/OBS CARE(HIGH) MONICA BOND MD Jun 25, 2025 18:58
[2025-06-25] MEDS ORDERED: bisacodyl 10mg suppository rectal RC PRN (19:00)
--- NOTE | 2025-06-25 21:38 | CONSULTATION REPORT ---
History of Present Illness Providers to CC CC: AMY GRAF MD ~ Reason for Admit\Admit Dx: Acute sigmoid diverticulitis Refering MD: dr simon, newspaper or periodical editor is dr coyne History of Present Illness 80-year-old gentleman who was admitted 36 hours ago with a complicated diverticulitis. He was admitted for observation and supportive care, including intravenous fluids, antibiotics and bowel rest. He was started on broad- spectrum intravenous antibiotics per hospital protocol, targeting and Gram- negative and anaerobic bacteria. Since admission, his abdominal pain has improved but persists. He has not had a bowel movement, but he is passing flatus. His last colonoscopy was eight years ago per his recollection. I was asked to consult from a general surgical perspective. Allergies: Coded Allergies: No Known Allergies (Unverified , 06/23/25) Home Medications Home Medications Active Lopressor tablet (Metoprolol Tartrate) 25 Mg Tablet 12.5 Mg PO BID 30 Days 12.5 MG = 1/2 TABLET Reported Diltiazem 24Hr ER (Diltiazem HCl) 120 Mg Cap.er.24h 1 Cap PO DAILY Rosuvastatin Calcium 20 Mg Tablet 1 Tab PO HS 30 Days Trelegy Ellipta 100-62.5-25 (Fluticasone/Umeclidin/Vilanter) 100-62.5 Blst.w.dev 1 Puffs INH DAILY 30 Days Hydrocodone-Apap 10-325 Tablet (Acetaminophen/Hydrocodone Bitart) 10mg/325mg Tablet 1 Tab PO TID PRN PRN Breo Ellipta 200-25 Mcg INH (Fluticasone/Vilanterol) 1 Each Blst.w.dev 1 Puff INH DAILY Venlafaxine Hcl Er (Venlafaxine Hcl) 75 Mg Cap.sr.24h 1 Cap PO DAILY Eliquis (Apixaban) 5 Mg Tablet 5 Mg PO BID Duoneb 2.5-0.5 Mg/3 Ml Soln (Ipratropium/Albuterol Sulfate) 3 Ml Ampul.neb 3 Ml IH Q4H PRN Incruse Ellipta (Umeclidinium [place]) 62.5 Mcg Blst.w.dev 1 Puff IH DAILY Ventolin Hfa (Albuterol Sulfate) 18 Gm Hfa.aer.ad 2 Puffs IH Q4H PRN Ambien* (Zolpidem Tartrate) 5 Mg Tablet 1 Tab PO HS PRN Singulair (Montelukast Sodium) 10 Mg Tablet 1 Tab PO DAILY Past Medical History Medical History Comment Hypertension Hyperlipidemia Asthma COPD Paroxysmal AFib Past Surgical History Surgical History Comment Pacemaker placement Past Family History Family History Comment Noncontributory Past Social History Social History Comment Not applicable Physical Exam Last Vital Signs Recorded: RN Vital Signs have been reviewed: Yes, Temperature: 97.9, Source: Oral, Heart Rate: 77, Respiratory Rate: 18, BP: 113/57, Pulse Oximetry: 92, Weight: 112.000 General Appearance: alert, WD/WN, no apparent distress EENT: PERRL/EOMI Neck: normal inspection Respiratory: lungs clear Cardiovascular: normal peripheral pulses, irregularly irregular Gastrointestinal Abdomen is soft and nondistended There was a small umbilical hernia In the left lower quadrant there was some tenderness to palpation and some fullness no rebound tenderness Rectal: deferred Back: no CVA tenderness Extremities: no edema Neurologic: oriented x4 Psychiatric: normal mood/affect; No: anxiety Skin: normal color Results Diagram Lab Result Diagram: 06/25/25 0500 06/25/25 0500 Assessment/Plan Problems/Diagnosis: (1) Acute diverticulitis Assessment & Plan: Acute complicated sigmoid diverticulitis with associated phlegmon. No abscess. Recommendations: Continue antibiotics Clear liquid diet until bowel movement Monitor for clinical signs of deterioration such as worsening pain, peritonitis, tachycardia or other signs of sepsis No urgent surgical intervention necessary or indicated unless there is clinical deterioration If clinically improved, consider advancing diet slowly as tolerated, changing to oral antibiotics and discharging home Plan for colonoscopy in 4-6 weeks after discharge to rule out malignancy If his clinical condition stagnated, consider repeat CT scan with enteral contrast on hospital day five If there is an abscess identified that is greater than 4-5 cm consult Interventional Radiology for possible percutaneous drainage Surgery will continue to follow AMY GRAF MD Jun 25, 2025 21:38
[2025-06-26 01:38] VITALS: O2SAT 93
[2025-06-26 05:52] LABS: MEAN PLATELET VOLUME 7.4 FL (7.4-10.4); RED CELL DISTRIBUTION WIDTH 15.1 % (11.5-14.5)
[2025-06-26 06:00] VITALS: BP 119/67; PULSE 74; RESP 18; TEMP 97.9; O2SAT 94
[2025-06-26 06:15] LABS: CREATININE 0.97 MG/DL (0.60-1.10); TOTAL CARBON DIOXIDE 24.1 MMOL/L (24-32); eCRCL 63 ML/MIN; eGFR 74 ML/MIN
[2025-06-26] MEDS: magnesium hydroxide 30ml (MOM) UD suspension PO PRN (07:42)
[2025-06-26 08:00] VITALS: RESP 16; O2SAT 94
[2025-06-26 08:09] VITALS: PULSE 60; RESP 16; O2SAT 94
[2025-06-26 08:17] VITALS: PULSE 80; RESP 16
[2025-06-26 10:00] VITALS: BP 139/72; PULSE 74; RESP 20; TEMP 97.5; O2SAT 92
[2025-06-26] MEDS ORDERED: SACC250C PO (11:04)
[2025-06-26] MEDS ORDERED: METR-159 PO (11:04)
[2025-06-26] MEDS ORDERED: CIPR-458 PO (11:04)
--- NOTE | 2025-06-26 14:47 | DISCHARGE SUMMARY ---
Discharge Summary Providers to CC ~ Discharge Summary Admission Diagnosis: abd pain Hospital Course DATE OF ADMISSION: 06/24/2025 DATE OF DISCHARGE: 06/26/2025 Discharge Diagnosis\\Comment: Acute sigmoid diverticulitis, hyperkalemia, hyponatremia, hypertension, paroxysmal atrial fibrillation, chronic COPD Operations\\Procedures: None Consultants: Dr. Fabián Gill general surgeon Complications: None Condition on DC: Stable New Medications: Ciprofloxacin HCl (Ciprofloxacin HCl) 500 Mg Tab 1 TAB PO BID, #16 TAB Metronidazole* (Flagyl*) 500 Mg Tablet 1 TAB PO Q8H, #24 TAB Saccharomyces Boulardii (Florastor) 250 Mg Capsule 1 CAP PO Q12H for loose stool for 10 Days, #20 CAP 0 Refills Continued Medications: Albuterol Sulfate (Ventolin Hfa) 18 Gm Hfa.aer.ad 2 PUFFS IH Q4H PRN for SOB or wheezing Apixaban (Eliquis) 5 Mg Tablet 5 MG PO BID, TAB Diltiazem HCl (Diltiazem 24Hr ER) 120 Mg Cap.er.24h 1 CAP PO DAILY Fluticasone/Umeclidin/Vilanter (Trelegy Ellipta 100-62.5-25) 100-62.5 Blst.w.dev 1 PUFFS INH DAILY for 30 Days, #1 EA 0 Refills Fluticasone/Vilanterol (Breo Ellipta 200-25 Mcg INH) 1 Each Blst.w.dev 1 PUFF INH DAILY Hydrocodone Bit/Acetaminophen (Hydrocodone-Apap 10-325 Tablet) 10mg/325mg Tablet 1 TAB PO TID PRN PRN for pain, TAB Ipratropium/Albuterol Sulfate (Duoneb 2.5-0.5 Mg/3 Ml Soln) 3 Ml Ampul.neb 3 ML IH Q4H PRN for SOB or wheezing Metoprolol Tartrate (Lopressor tablet) 25 Mg Tablet 12.5 MG PO BID for 30 Days, #30 TAB 0 Refills 12.5 MG = 1/2 TABLET Montelukast Sodium (Singulair) 10 Mg Tablet 1 TAB PO DAILY Rosuvastatin Calcium (Rosuvastatin Calcium) 20 Mg Tablet 1 TAB PO HS for 30 Days, #30 TAB 0 Refills Umeclidinium [place] (Incruse Ellipta) 62.5 Mcg Blst.w.dev 1 PUFF IH DAILY Venlafaxine Hcl (Venlafaxine Hcl Er) 75 Mg Cap.sr.24h 1 CAP PO DAILY Zolpidem Tartrate* (Ambien*) 5 Mg Tablet 1 TAB PO HS PRN for INSOMNIA, TAB Discharge Summary: The patient was admitted by resident physician BRIANA Celestin , under the supervision of ASHLEY Escobar MD with the following HPI:"80-year-old male with past medical history of hypertension, hyperlipidemia, asthma, COPD, paroxysmal AFib presents to the ED with chief complaints of abdominal pain. Patient reports that pain started yesterday, progressively increasing in intensity, constant, currently 7/10 in intensity, mainly present in the lower abdominal region, not radiating, no aggravating and relieving factors. Patient denies any complaints of nausea, vomiting, hematemesis, melena, burning micturition. Patient having normal bowel movements his last one being around 9:00 p.m. last night. Patient's colonoscopy was done 8 years ago. He denies having food outside, recent travel or contact with sick people. 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 Acute sigmoid diverticulitis with micro perforation and prominent phlegmon. No evidence of pneumoperitoneum or organized abscess. Recommend surgical consultation. The patient is on IV metronidazole and IV ciprofloxacin the patient did [place] [address] [place] the which normalized on the day discharge the patient had a normal lactic acid level. The patient was evaluated by Dr. Gill surgeon with the following recommendations:"Continue antibiotics Clear liquid diet until bowel movement Monitor for clinical signs of deterioration such as worsening pain, peritonitis, tachycardia or other signs of sepsis No urgent surgical intervention necessary or indicated unless there is clinical deterioration If clinically improved, consider advancing diet slowly as tolerated, changing to oral antibiotics and discharging home Plan for colonoscopy in 4-6 weeks after discharge to rule out malignancy If his clinical condition stagnated, consider repeat CT scan with enteral contrast on hospital day five If there is an abscess identified that is greater than 4-5 cm consult Interventional Radiology for possible percutaneous drainage" The patient improved and white blood cell count was normal and the patient had a bowel movement on the and was tolerating a diet without any reoccurrence of his symptoms the patient felt well enough to be discharged home. The patient has a hyperkalemia with serum potassium of 5.3 on the this normalized at 3.8 on the In his blood pressure was well controlled during hospitalization and continues on apixaban and for DVT and stroke prophylaxis for his AFib as well as diltiazem and metoprolol. Heart rate was controlled during hospitalization. Gen. No acute distress alert and oriented 4 Lungs clear to ascultation bilaterally, no wheezes rales or rhonchi appreciated Heart normal sinus rhythm no murmurs rubs or clicks noted Abdomen soft nontender bowel sounds are normoactive Lower extremities no clubbing cyanosis, nor edema appreciated bilaterally The patient felt ready to be discharged and was medically cleared to be discharged on 06/26/2025 The patient was seen and evaluated on day of discharge. Time spent on discharge 40 minutes *Problems/Diagnosis: (1) Acute diverticulitis Total Time Spent on D/C: > 30 Minutes Date of Service: Jun 26, 2025 Billing Provider: TORSTEN PATEL DO Common Visit Codes: 43449-CSL/OBS DISCH DAY >30min TORSTEN PATEL DO Jun 26, 2025 14:46
== END 2025-06-26 13:30 | disposition home or self-care (01) | DRG 392 ==
LOC: ER 22:20 → ED HOLD 06-24 03:46 → ORTHO 4S 06-24 05:26
PROVIDERS: ADMIT Internal Medicine Pulmonary Disease; ATTEND Internal Medicine
PROC: BW211ZZ Computerized Tomography (CT Scan) of Abdomen and Pelvis using Low Osmolar Contrast (ICD-10-PCS; principal; 2025-06-24)
DX: K57.20 Diverticulitis of large intestine with perforation and abscess without bleeding (principal); E87.1 Hypo-osmolality and hyponatremia; I10 Essential (primary) hypertension; J43.9 Emphysema, unspecified; Z20.822 Contact with and (suspected) exposure to COVID-19; J44.89 Other specified chronic obstructive pulmonary disease; E78.5 Hyperlipidemia, unspecified; E87.5 Hyperkalemia; I48.0 Paroxysmal atrial fibrillation; Z79.01 Long term (current) use of anticoagulants; Z79.899 Other long term (current) drug therapy; Z95.0 Presence of cardiac pacemaker
CPT/HCPCS: 36415; 71045; 80053; 80061; 81003; 83036; 83605; 83690; 83735; 84132; 84145; 85025; 85610; 85651; 85730; 87040; 87081; 87811; 93005; 94640; 94760; 96365; 96375; 97116; 97161; 97530; 99285; A4615; G0378; J0131; J0744; J2270; J2405; J2543; J3010; J3490; J7030; Q9967